=== PATIENT | female | born 1935 | race Caucasian/White ===

== ENCOUNTER 2017-06-28 21:42 | Emergency (ER) | payer MEDICARE, BC ==
[2017-06-28 22:29] LABS: BASOPHILS % (AUTO) 1 % (0-3); EOSINOPHILS % (AUTO) 1 % (0-9); HEMATOCRIT 39 % (35-47); MEAN CORPUSCULAR HGB CONC 33.4 gm/dl (32.0-36.0); MEAN CORPUSCULAR VOLUME 88 fL (81-99); NEUTROPHILS % (AUTO) 77.8 % (37-80)
[2017-06-28 22:41] VITALS: BP 159/83; PULSE 87; RESP 20; TEMP 100.2; O2SAT 94
[2017-06-28 22:47] LABS: CALCIUM 8.5 mg/dl (8.5-10.1); GLOM FILT RATE 48 mL/min (>60); POTASSIUM 3.6 mMol/L (3.5-5.1); SODIUM 139 mMol/L (136-145)
== END 2017-06-28 23:40 | disposition home or self-care (01) | DRG 153 ==
LOC: ED 21:42
DX: J11.1 Influenza due to unidentified influenza virus with other respiratory manifestations (principal)
CPT/HCPCS: 36415; 71046; 80048; 84484; 85025; 99282

== ENCOUNTER 2018-05-01 06:21 | Emergency (ER) | payer MEDICARE, BC ==
[2018-05-01 06:25] VITALS: TEMP 97.3
[2018-05-01 06:47] LABS: BASOPHILS % (AUTO) 1 % (0-3); EOSINOPHILS % (AUTO) 7 % (0-9); HEMATOCRIT 38 % (35-47); HEMOGLOBIN 12.3 gm/dl (12.0-15.5); LYMPHOCYTES % (AUTO) 14.4 % (10-50); MEAN CORPUSCULAR HEMOGLOBIN 28.7 pg (27.0-32.0); MEAN CORPUSCULAR VOLUME 90 fL (81-99); MONOCYTES % (AUTO) 8.6 % (0-12); NEUTROPHILS % (AUTO) 68.3 % (37-80)
[2018-05-01] MEDS: SODIUM CHLORIDE 0.9% FLUSH 10 ML SOL IV PRN ×2 (06:51→07:11)
[2018-05-01 07:04] LABS: CARBON DIOXIDE 24.4 mEq/L (21-32); POTASSIUM 3.4 mMol/L (3.5-5.1)
[2018-05-01 07:05] LABS: ALBUMIN 3.3 gm/dl (3.4-5.0); BILIRUBIN,TOTAL 0.5 mg/dl (0.2-1.0); CALCIUM 9.2 mg/dl (8.5-10.1); CREATININE 1.01 mg/dl (0.60-1.00)
[2018-05-01] MEDS ORDERED: ONDANSETRON HCL 4 MG/2 ML SOL IV ONE (07:05)
[2018-05-01] MEDS ORDERED: FENTANYL 100MCG/2ML SOL IV ONE (07:05)
[2018-05-01 07:06] LABS: CRP INFLAMMATORY 1.34 mg/dl (0.00-0.33)
[2018-05-01] MEDS ORDERED: FENTANYL 100MCG/2ML SOL ONE (07:07)
[2018-05-01] MEDS ORDERED: ONDANSETRON HCL 4 MG/2 ML SOL ONE (07:07)
[2018-05-01] MEDS ORDERED: PANTOPRAZOLE SODIUM 40 MG/10 ML PDS IV ONE (07:20)
[2018-05-01] MEDS ORDERED: POTASSIUM CHLORIDE 10 MEQ TER PO ONE (07:22)
[2018-05-01] MEDS ORDERED: POTASSIUM CHLORIDE 10 MEQ TER ONE (07:24)
[2018-05-01] MEDS ORDERED: PANTOPRAZOLE SODIUM 40 MG/10 ML PDS ONE (07:24)
[2018-05-01 09:34] VITALS: RESP 20
[2018-05-01 09:35] VITALS: BP 161/81; PULSE 71; O2SAT 96
== END 2018-05-01 09:50 | disposition home or self-care (01) | DRG 446 ==
LOC: ED 06:21
DX: K81.9 Cholecystitis, unspecified (principal); E87.6 Hypokalemia; R79.9 Abnormal finding of blood chemistry, unspecified
CPT/HCPCS: 36415; 74177; 80053; 82150; 85025; 96374; 96375; 99284; 99285; J2405; J3010; Q9967; A9270-GY